=== PATIENT | female | born 1935 | race Caucasian/White ===

== ENCOUNTER 2016-10-19 08:00 | Outpatient (RCR) | payer MEDICARE, BC ==
[~2016-10-19 08:00] MED LIST: ALTACE 1.25MG1.25 MG; ALTACE 2.5MG T2.5 MG PO; AZASITE 2.5 ML2.5 ML OP; CALCIUM1 CAP; COMBIGAN 0.2%-0.5 ML; EYE DROPS; LIQUID MULTIVITAMIN; OMEGA-3 FISH1200 MG PO; SIMETHICONE 1 ML1 ML; ZOFRAN ODT4 MG PO; [UNRECOGNIZED DRUG - OTHER]; [UNRECOGNIZED DRUG - REMARK]
== END 2016-10-26 08:28 | disposition home or self-care (01) ==
LOC: WSPT 08:00
DX: R60.0 Localized edema (principal); M19.90 Unspecified osteoarthritis, unspecified site
CPT/HCPCS: G8978-GP; G8979-GP; G8980-GP

== ENCOUNTER → 2016-11-19 | Outpatient (REF) | LOC: ZLAB.WCH 16:00 | DX: Z01.89 Encounter for other specified special examinations (principal) ==

== ENCOUNTER → 2017-04-07 | Outpatient (REF) ==
[2017-04-07 09:33] LABS: THYROID STIMULATING HORMONE 1.96 uIU/mL (0.465-4.680)
== END ==
LOC: ZLAB.WCH 08:41
PROVIDERS: Family Medicine
DX: Z01.89 Encounter for other specified special examinations (principal)

== ENCOUNTER → 2017-04-11 | Outpatient (CLI) | payer MEDICARE, BC | LOC: MC.RAD 14:40 | DX: Z12.31 Encounter for screening mammogram for malignant neoplasm of breast (principal) ==

== ENCOUNTER → 2017-04-19 | Outpatient (CLI) | payer MEDICARE, BC | LOC: MC.RAD 12:58 | DX: R92.2 Inconclusive mammogram (principal) ==

== ENCOUNTER 2017-11-08 12:29 | Day surgery (SDC) | payer MEDICARE, BC ==
[~2017-11-08] VITALS: Ht 157.5 cm; Wt 72.4 kg
[2017-11-08] MEDS ORDERED: TIMOPTIC 0.25%-5 OP (13:41)
[2017-11-08] MEDS ORDERED: GENTEAL 10 ML10 M1 OP (13:42)
[2017-11-08] MEDS ORDERED: IBGARD PO (13:44)
[2017-11-08] MEDS ORDERED: EPA FISH OIL1 SGL PO (13:45)
[2017-11-08] MEDS ORDERED: CALCIUM CARBON650 M2 PO (13:47)
[2017-11-08] MEDS ORDERED: [UNRECOGNIZED DRUG - OTHER] PO (13:48)
[2017-11-08] MEDS ORDERED: PSYLLIUM PO (13:48)
[2017-11-08] MEDS ORDERED: THE MEDICINE S200 M2 PO (13:49)
[2017-11-08] MEDS ORDERED: JUICE PLUS PO (13:50)
[2017-11-08] MEDS ORDERED: PROBIOTIC FORMU1 CAP PO (13:51)
[2017-11-08] MEDS ORDERED: PRILOSEC 20MG20 MG PO (13:51)
[2017-11-08 13:52] VITALS: BP 189/80; PULSE 72; TEMP 98.1
[2017-11-08 14:50] VITALS: BP 140/66; PULSE 87
[2017-11-08 15:05] VITALS: BP 139/64; PULSE 77
[2017-11-08 15:20] VITALS: BP 142/73; PULSE 73
[2017-11-08 15:35] VITALS: BP 146/72; PULSE 72
== END 2017-11-08 15:48 | disposition home or self-care (01) ==
LOC: SDCO 12:29
DX: K22.8 Other specified diseases of esophagus (principal); K44.0 Diaphragmatic hernia with obstruction, without gangrene; R13.10 Dysphagia, unspecified; I10 Essential (primary) hypertension; E78.5 Hyperlipidemia, unspecified; Z85.828 Personal history of other malignant neoplasm of skin; M19.90 Unspecified osteoarthritis, unspecified site; Z90.710 Acquired absence of both cervix and uterus; Z88.5 Allergy status to narcotic agent; Z88.8 Allergy status to other drugs, medicaments and biological substances; Z88.1 Allergy status to other antibiotic agents; Z91.041 Radiographic dye allergy status
CPT/HCPCS: OP; J2250; J3010; J7030

== ENCOUNTER 2018-03-26 20:18 | Emergency (ER) | payer MEDICARE, BC ==
[~2018-03-26] VITALS: Ht 157.5 cm; Wt 71.8 kg
[~2018-03-26 20:18] MED LIST changes: +CALCIUM CARBON650 M2 PO; +EPA FISH OIL1 SGL PO; +GENTEAL 10 ML10 M1 OP; +IBGARD PO; +JUICE PLUS PO; +PRILOSEC 20MG20 MG PO; +PROBIOTIC FORMU1 CAP PO; +PSYLLIUM PO; +THE MEDICINE S200 M2 PO; +TIMOPTIC 0.25%-5 OP; +[UNRECOGNIZED DRUG - OTHER] PO
[2018-03-26 20:27] VITALS: TEMP 98.8
[2018-03-26 20:38] LABS: COLLECTION METHOD CLEAN CATCH
[2018-03-26 20:44] LABS: PH 7 (5-8); SQUAMOUS EPITHELIAL 0-2 /hpf; URINE APPEARANCE Hazy; URINE BACTERIA Rare /hpf; URINE BILIRUBIN Negative (NEGATIVE); URINE BLOOD 3+ (NEGATIVE); URINE COLOR Amber; URINE GLUCOSE Negative (NEGATIVE); URINE KETONE Negative (NEGATIVE); URINE LEUKOCYTE ESTERASE 3+ (NEGATIVE); URINE NITRATE Positive (NEGATIVE); URINE PROTEIN(semi-quant) Negative (NEGATIVE); URINE UROBILINOGEN Negative (NEGATIVE)
[2018-03-26] MEDS ORDERED: OMNICEF 300MG300 MG PO (21:29)
[2018-03-26] MEDS ORDERED: PYRIDIUM 100MG100 MG PO (21:29)
[2018-03-26 21:36] VITALS: BP 174/74; PULSE 75
== END 2018-03-26 21:43 | disposition home or self-care (01) ==
LOC: COL.ER 20:18
PROVIDERS: Emergency Medicine
DX: N39.0 Urinary tract infection, site not specified (principal)

== ENCOUNTER 2018-05-11 10:15 | Outpatient (RCR) | payer MEDICARE, BC ==
[~2018-05-11 10:15] MED LIST changes: +OMNICEF 300MG300 MG PO; +PYRIDIUM 100MG100 MG PO
== END 2018-05-16 08:14 | disposition home or self-care (01) ==
LOC: WSPT 10:15
DX: M54.6 Pain in thoracic spine (principal); R29.898 Other symptoms and signs involving the musculoskeletal system; M41.84 Other forms of scoliosis, thoracic region
CPT/HCPCS: G8978-GP; G8979-GP; G8980-GP

== ENCOUNTER → 2018-07-25 | Outpatient (CLI) | payer MEDICARE, BC | LOC: MC.RAD 10:00 | DX: Z12.31 Encounter for screening mammogram for malignant neoplasm of breast (principal) ==

== ENCOUNTER 2019-02-12 08:59 | Emergency (ER) | payer MEDICARE, BC ==
[~2019-02-12] VITALS: Ht 157.5 cm; Wt 72.7 kg
[~2019-02-12 08:59] MED LIST changes: -PSYLLIUM PO; +[UNRECOGNIZED DRUG - OTHER] PO; -[UNRECOGNIZED DRUG - OTHER] PO
[2019-02-12 09:05] VITALS: TEMP 96.6
[2019-02-12 09:45] LABS: BASO % 0.6 % (0.0-2.0); EOS # 0.1 (0.0-0.7); EOS % 1.5 % (0-4.0); GRAN # 3.8 (1.4-6.5); HEMATOCRIT 42.6 % (37.0-47.0); HEMOGLOBIN 14.3 g/dl (12.5-16.0); LYMPH # 1.7 (1.2-3.4); LYMPH % 26.3 % (20.0-51.0); MEAN CELL VOLUME 89 fl (80.0-100.0); MEAN CORPUSCULAR HEMOGLOBIN 30 pg (27.0-31.0); MEAN CORPUSCULAR HGB CONC 34 g/dl (33.0-37.0); MEAN PLATELET VOLUME 8.4 fl (7.4-10.4); MONO # 0.8 (0.1-0.6); MONO % 12.4 % (1.7-9.3); PLATELET COUNT 268 K/mm3 (130-400); RED BLOOD COUNT 4.77 M/mm3 (4.10-5.30); REDCELL DISTRIBUTION WIDTH-CV 13.1 % (11.5-14.5)
[2019-02-12 09:58] LABS: ALANINE AMINOTRANSFERASE 20 U/L (9-52); ALBUMIN 4.2 gm/dL (3.5-5.0); ALKALINE PHOSPHATASE 51 U/L (50-136); ANION GAP 8 mmol/L (7-16); AST,SGOT 33 U/L (15-37); BILIRUBIN,TOTAL 0.5 mg/dL (0.0-1.0); BLOOD UREA NITROGEN 18 mg/dL (7-17); CALCIUM 9.5 mg/dL (8.4-10.2); CARBON DIOXIDE 29 mmol/L (22-30); CHLORIDE 101 mmol/L (98-107); CREATININE, serum 0.65 (0.52-1.25); GLUCOSE 101 mg/dL (74-106); POTASSIUM 4.2 mmol/L (3.4-5.0); SODIUM 138 mmol/L (137-145); TOTAL PROTEIN 7.2 gm/dL (6.4-8.2)
[2019-02-12 10:18] LABS: TROPONIN-I < 0.012 ng/mL (0.000-0.035)
[2019-02-12 12:16] VITALS: BP 149/67; PULSE 68
== END 2019-02-12 12:19 | disposition home or self-care (01) ==
LOC: COL.ER 08:59
PROVIDERS: Emergency Medicine
DX: I10 Essential (primary) hypertension (principal); R42 Dizziness and giddiness; E78.5 Hyperlipidemia, unspecified; M79.7 Fibromyalgia; Z98.890 Other specified postprocedural states
CPT/HCPCS: J2060; J2405; J7030

== ENCOUNTER 2019-05-03 15:00 | Outpatient (RCR) | payer MEDICARE, BC | END 2019-05-10 13:16 | disposition home or self-care (01) | LOC: WSPT 15:00 | DX: M79.605 Pain in left leg (principal); M54.2 Cervicalgia ==

== ENCOUNTER → 2019-05-24 | Outpatient (CLI) | payer MEDICARE, BC | LOC: COL.CARD 10:00 | DX: R42 Dizziness and giddiness (principal) ==

== ENCOUNTER 2019-06-13 08:03 | Outpatient (CLI) | payer MEDICARE, BC ==
[~2019-06-13] VITALS: Ht 157.6 cm; Wt 73.9 kg
[2019-06-13 08:44] LABS: HEMATOCRIT 42.8 % (37.0-47.0); HEMOGLOBIN 14.5 g/dl (12.5-16.0); MEAN CELL VOLUME 90 fl (80.0-100.0); MEAN CORPUSCULAR HEMOGLOBIN 31 pg (27.0-31.0); MEAN CORPUSCULAR HGB CONC 34 g/dl (33.0-37.0); MEAN PLATELET VOLUME 8.3 fl (7.4-10.4); PLATELET COUNT 263 K/mm3 (130-400); RED BLOOD COUNT 4.75 M/mm3 (4.10-5.30); REDCELL DISTRIBUTION WIDTH-CV 12.8 % (11.5-14.5)
[2019-06-13 08:53] LABS: INR 0.9 (0.8-3.0); PROTHROMBIN TIME 10.2 SECONDS (9.7-12.8)
[2019-06-13 08:55] LABS: CALCIUM 9.6 mg/dL (8.4-10.2); CREATININE, serum 0.83 (0.52-1.25); POTASSIUM 4.3 mmol/L (3.4-5.0)
[2019-06-13 09:07] VITALS: BP 169/75; PULSE 75; TEMP 98.4
[2019-06-13] MEDS ORDERED: LOTEMAX 5 ML 5 M5 ML OD (09:13)
[2019-06-13] MEDS ORDERED: MULTIPLE VITAMI1 TA5 PO (09:14)
[2019-06-13] MEDS ORDERED: PLAVIX 75MG TAB75 MG PO (09:15)
[2019-06-13] MEDS ORDERED: ASPIRIN 32325 MG/TAB PO (09:15)
[2019-06-13] MEDS ORDERED: AVAPRO75 MG PO (09:15)
[2019-06-13] MEDS ORDERED: LIPITOR 40MG TA40 MG PO (09:15)
[2019-06-13 09:50] VITALS: BP 164/75; PULSE 74
[2019-06-13 10:05] VITALS: BP 156/71; PULSE 71
[2019-06-13 10:20] VITALS: BP 167/69; PULSE 72
[2019-06-13 10:35] VITALS: BP 165/75; PULSE 75
--- NOTE | 2019-06-13 10:58 | NUR ---
Discharge instructions given to pt.Pt verbalizes understanding.INT removed,catheter tip intat.Pt escorted out via wheelchair by this nurse.
== END 2019-06-13 11:25 | disposition home or self-care (01) ==
LOC: COL.RAD 08:03
PROVIDERS: Internal Medicine Cardiovascular Disease
DX: G45.9 Transient cerebral ischemic attack, unspecified (principal); I51.7 Cardiomegaly; I34.0 Nonrheumatic mitral (valve) insufficiency
CPT/HCPCS: J2704; J7120

== ENCOUNTER → 2019-08-01 | Outpatient (CLI) | payer MEDICARE, BC ==
[~2019-08-01] MED LIST changes: +ASPIRIN 32325 MG/TAB PO; +AVAPRO75 MG PO; +LIPITOR 40MG TA40 MG PO; +LOTEMAX 5 ML 5 M5 ML OD; +MULTIPLE VITAMI1 TA5 PO; +PLAVIX 75MG TAB75 MG PO
== END ==
LOC: MC.RAD 13:00
DX: Z12.31 Encounter for screening mammogram for malignant neoplasm of breast (principal)

== ENCOUNTER → 2020-08-18 | Outpatient (CLI) | payer MEDICARE, BC | LOC: MC.RAD 11:15 | DX: Z12.31 Encounter for screening mammogram for malignant neoplasm of breast (principal) ==

== ENCOUNTER 2020-10-31 14:45 | Outpatient (RCR) | payer MEDICARE, BC | END 2020-12-30 | disposition still patient (30) | LOC: WSPT | DX: M25.512 Pain in left shoulder (principal) ==

== ENCOUNTER → 2021-10-08 | Outpatient (CLI) | payer MEDICARE, BC | LOC: MC.RAD 13:14 | DX: Z12.31 Encounter for screening mammogram for malignant neoplasm of breast (principal) ==

== ENCOUNTER → 2023-02-04 | Outpatient (CLI) | payer MEDICARE, BC ==
[~2023-02-04] MED LIST changes: +ASPIRIN 81M81 MG/TA2 PO; +CALCIUM 600MG+D1 TAB PO; -CALCIUM CARBON650 M2 PO; +CATAPRES 0.1MG0.1 MG PO; +GARLIC100 MG; +LOPRESSOR 225 MG/TAB PO; +LOTEMAX0.5% OP; +NORVASC 5MG5 MG/TAB PO; +PEPCID 20MG TAB20 MG PO; +PEPPERMINT OIL PO; +TIMOLOL MALEATE5 M3 OP; +XANAX .25M0.25 MG/TA PO; +ZETIA 10MG TAB10 MG PO
== END ==
LOC: COL.RAD 02-02 14:00
DX: K21.9 Gastro-esophageal reflux disease without esophagitis (principal); R13.19 Other dysphagia

== ENCOUNTER → 2023-05-04 | Outpatient (CLI) | payer MEDICARE, BC ==
[~2023-05-04] MED LIST changes: -NORVASC 5MG5 MG/TAB PO; -PEPPERMINT OIL PO; -XANAX .25M0.25 MG/TA PO
== END ==
LOC: COL.RAD 13:57
DX: S80.12XA Contusion of left lower leg, initial encounter (principal); S80.11XA Contusion of right lower leg, initial encounter

== ENCOUNTER 2023-10-24 17:14 | Inpatient (IN) | payer MEDICARE, BC ==
[~2023-10-24] VITALS: Ht 157.5 cm; Wt 73.1 kg
[2023-10-24] MEDS ORDERED: Mag/Al Hydrox/Simeth Susp 30 ML CUP PO ONE (17:45)
[2023-10-24 17:50] LABS: BASO # 0.1 K/mm3 (0.0-0.2); BASO % 1.3 % (0.0-2.0); EOS # 0.3 K/mm3 (0.0-0.7); EOS % 5.2 % (0.0-4.0); GRAN # 2.8 K/mm3 (1.4-6.5); GRAN % 46.4 % (42.2-75.2); HEMATOCRIT 41.8 % (37.0-47.0); HEMOGLOBIN 14.2 g/dl (12.5-16.0); LYMPH # 2.1 K/mm3 (1.2-3.4); LYMPH % 35.5 % (20.0-51.0); MEAN CELL VOLUME 90 fl (80.0-100.0); MEAN CORPUSCULAR HEMOGLOBIN 30 pg (27-31); MEAN CORPUSCULAR HGB CONC 34 g/dl (33.0-37.0); MEAN PLATELET VOLUME 8.4 fl (7.4-10.4); MONO # 0.7 K/mm3 (0.1-0.6); MONO % 11.4 % (1.7-9.3); PLATELET COUNT 279 K/mm3 (130-400); RED BLOOD COUNT 4.67 M/mm3 (4.10-5.30); REDCELL DISTRIBUTION WIDTH-CV 13.2 % (11.5-14.5)
[2023-10-24 17:59] LABS: PROTHROMBIN TIME 10.5 SECONDS (9.7-12.8)
[2023-10-24] MEDS ORDERED: Ketorolac 15 MG/ML VIAL IV ONE (18:00)
[2023-10-24 18:04] LABS: PARTIAL THROMBOPLASTIN TIME 31.8 SECONDS (26.0-37.0)
[2023-10-24 18:08] LABS: ALANINE AMINOTRANSFERASE 20 U/L (0-55); ALBUMIN 3.9 gm/dL (3.4-4.8); ALKALINE PHOSPHATASE 56 U/L (40-150); ANION GAP 11 mmol/L (7-16); AST,SGOT 24 U/L (5-34); BLOOD UREA NITROGEN 16 mg/dL (10-20); CALCIUM 10.2 mg/dL (8.4-10.2); CARBON DIOXIDE 25 mmol/L (23-31); CHLORIDE 102 mmol/L (98-107); CREATININE, serum 0.75 mg/dL (0.57-1.11); GLUCOSE 99 mg/dL (70-99); POTASSIUM 3.9 mmol/L (3.5-4.5); SODIUM 138 mmol/L (136-145)
[2023-10-24 18:17] LABS: TROPONIN-I < 0.010 ng/mL (0.00-0.033)
[2023-10-24 18:40] LABS: BILIRUBIN,TOTAL 0.4 mg/dL (0.2-1.2)
[2023-10-24] MEDS ORDERED: Metoprolol Tartrate 25 MG TAB PO ONE (21:45)
[2023-10-24] MEDS ORDERED: Acetaminophen 325 MG TAB PO PRN (21:45)
[2023-10-24] MEDS ORDERED: hydrALAZINE 20 MG/ML 1 ML VIAL IV ONE (21:45)
[2023-10-24] MEDS ORDERED: CATAPRES 0.1MG0.1 MG PO (22:22)
[2023-10-24] MEDS ORDERED: cloNIDine 0.1 MG TAB PO ONE (22:30)
[2023-10-24] MEDS ORDERED: LORazepam 2 MG/ML 1 ML VIAL IV ONE (22:45)
[2023-10-24] MEDS ORDERED: Acetaminophen 500 MG TAB PO ONE (23:30)
[2023-10-24] MEDS ORDERED: Patient's Own Medication Item OP SCH (23:30)
[2023-10-25] VITALS (23 sets, daily range): BP systolic 90–193; BP diastolic 41–152; PULSE 62–96; TEMP 97.5–98.5
[2023-10-25] MEDS ORDERED: Acetaminophen 325 MG TAB PO PRN (01:30)
[2023-10-25] MEDS ORDERED: cloNIDine 0.1 MG TAB PO PRN (02:15)
--- NOTE | 2023-10-25 02:30 | NUR ---
PT ARRIVED TO ROOM 324 FROM ED & AMBULATED TO ROOM WITH STANDBY ASSIST. HERE FOR HTN. A&O X4. BP 150/71, OTHER VSS. ON TELE SR. INT TO RIGHT AC PATENT. DENYING PAIN. PT ORIENTED TO ROOM & HOSPITAL POLICIES. DISSCUSSED POC FOR THIS SHIFT. CALL LIGHT IN REACH & BED ALARM ON. PT DENIES FURTHER NEEDS AT THIS TIME
--- NOTE | 2023-10-25 05:58 | NUR ---
PT RESTING IN BED WITH UNLABORED RESP. CALL LIGHT IN REACH
[2023-10-25 06:31] LABS: BASO # 0.1 K/mm3 (0.0-0.2); BASO % 1.1 % (0.0-2.0); EOS # 0.3 K/mm3 (0.0-0.7); EOS % 3.9 % (0.0-4.0); GRAN # 4.3 K/mm3 (1.4-6.5); HEMATOCRIT 38.5 % (37.0-47.0); HEMOGLOBIN 13.4 g/dl (12.5-16.0); LYMPH % 26.6 % (20.0-51.0); MEAN CELL VOLUME 89 fl (80.0-100.0); MEAN CORPUSCULAR HEMOGLOBIN 31 pg (27-31); MEAN CORPUSCULAR HGB CONC 35 g/dl (33.0-37.0); MEAN PLATELET VOLUME 8.5 fl (7.4-10.4); MONO # 0.8 K/mm3 (0.1-0.6); MONO % 10.3 % (1.7-9.3); PLATELET COUNT 229 K/mm3 (130-400); RED BLOOD COUNT 4.34 M/mm3 (4.10-5.30)
[2023-10-25 06:43] LABS: CALCIUM 9.4 mg/dL (8.4-10.2); CREATININE, serum 0.76 mg/dL (0.57-1.11); POTASSIUM 4.1 mmol/L (3.5-4.5)
[2023-10-25 06:56] LABS: TROPONIN-I 0.184 ng/mL (0.00-0.033)
--- NOTE | 2023-10-25 07:12 | NUR ---
[facility] (0.184) CALLED TO DR. BUCKNER.
[2023-10-25] MEDS ORDERED: PEPPERMINT OIL PO (08:34)
--- NOTE | 2023-10-25 08:42 | NUR ---
Ship Boat Or Barge Mate met with patient to discuss discharge planning. Patient lives in [place] with her , Armand (ph#[phone]) who is at bedside. Patient sees Dr. Mason Berger in [place] for primary care and gets her medications from [facility]. Patient is able to drive herself to medical appointments and is independent with ADLS. Patient advised she does not use any DME. Patient believes she has DPOA-HC completed designating either Armand or their daughter, Myra (ph#[phone]). Discharge Plan: Home
[2023-10-25] MEDS ORDERED: Losartan 25 MG TAB PO SCH ×2 (09:00)
[2023-10-25] MEDS ORDERED: Calcium Carb/Vit D3 500 mg-200 Units TAB PO SCH ×2 (09:00)
[2023-10-25] MEDS ORDERED: Timolol 0.5% Ophth Soln 5 ML BOTTLE OP SCH ×2 (09:00)
[2023-10-25] MEDS ORDERED: Multivitamin TAB PO SCH ×2 (09:00)
[2023-10-25] MEDS ORDERED: [UNRECOGNIZED DRUG - REMARK] PO SCH (09:00)
--- NOTE | 2023-10-25 10:43 | NUR ---
PATIENT ALERT AND ORIENTED X4. VSS WITH THE EXCEPTION OF ELEVATED BP. PATIENT DENIES ANY PAIN AT THIS TIME. AM MEDS ADMINISTERED. IV INT TO RIGHT AC, FLUSHES WELL. PATIENT RESTING IN BED, AWARE OF NPO STATUS. DR BUCKNER ALLOWS A FEW SIPS OF WATER WITH MORNING MEDS. NO FURTHER NEEDS. CALL LIGHT IN REACH.
[2023-10-25] MEDS ORDERED: 1/2 NS 1,000 ML IV SCH ×2 (12:00→15:45)
[2023-10-25] MEDS ORDERED: ALPRAZolam 0.25 MG TAB PO PRN (12:00)
[2023-10-25] MEDS ORDERED: LORazepam 2 MG/ML 1 ML VIAL IV ONE (12:00)
[2023-10-25] MEDS ORDERED: diphenhydrAMINE 50 MG/ML 1 ML VIAL IV ONE (12:00)
[2023-10-25] MEDS ORDERED: methylPREDNISolone Sod Succ 125 MG/2 ML VIAL IV SCH (12:00)
--- NOTE | 2023-10-25 14:41 | NUR ---
SEE MERGE FOR PROCEDURE DOCUMENTATION
[2023-10-25] MEDS ORDERED: niCARdipine (Cath Lab) 100 MCG/ML 10 ML VIAL INCOR SCH (14:43)
[2023-10-25] MEDS ORDERED: Nitroglycerin 2% Topical Oint 1 GM UD TD SCH (14:46)
[2023-10-25] MEDS ORDERED: Heparin 1,000 UNITS/ML 10 ML Multi-Dose VIAL IV SCH (15:17)
[2023-10-25] MEDS ORDERED: fentaNYL 50 MCG/ML 2 ML VIAL IV SCH (15:18)
[2023-10-25] MEDS ORDERED: Midazolam 2 MG/2 ML VIAL IV SCH (15:20)
[2023-10-25] MEDS ORDERED: Iohexol 350 - 100 ML VIAL IV ONE (15:25)
--- NOTE | 2023-10-25 15:53 | NUR ---
PATIENT TRANSFERRED TO SURGICAL 324 VIA BED, ACCOMPANIED BY SPOUSE AND DAUGHTER. PATIENT DENIES CHEST PAIN, SOB, OR NAUSEA. EDUCATION PROVIDED ABOUT TR BAND AND KEEPING WRIST IMMOBILIZED UNTIL REMOVED. VITAL SIGNS TAKEN ON ARRIVAL. VSS. PATIENT POSITIONED IN BED FOR COMFORT, STAFF MET AT BEDSIDE. RADIAL SITE ASSESSED, CDI. BED IN LOWEST POSITION, CALL LIGHT WITHIN REACH, X3 BEDRAILS UP.
--- NOTE | 2023-10-25 16:17 | NUR ---
PATIENT BROUGHT BACK TO ROOM AT APPROXIMATELY 1540. RIGHT RADIAL BAND ON WITH 12CC OF AIR. PATIENT AMBULATED TO BATHROOM, VOIDED WITHOUT ISSUE. POST OP VITALS RUNNING, FLUIDS RUNNING INTO RIGHT AC AT 100ML/HOUR. PATIENT DENIES ANY PAIN. PATIENT TOLERATING PO. DINNER ORDERED. CALL LIGHT IN REACH.
[2023-10-25] MEDS ORDERED: hydrALAZINE 25 MG TAB PO SCH (17:00)
--- NOTE | 2023-10-25 18:49 | NUR ---
LAST 3 MLS OF AIR REMOVED FROM RADIAL BAND. BANDAID PLACED. PATIENT REMINDED TO NOT BEND WRIST. BAND AND SUPPLIES LEFT IN ROOM.
--- NOTE | 2023-10-25 20:00 | NUR ---
PT A&O X4 LAYING IN BED. VSS ON ROOM AIR. ON TELE SR. PT DENYING PAIN, N/V, OR SOA. RIGHT RADIAL SITE CDI & BANDAID IN PLACE. IVF INFUSING TO RIGHT AC VIA PUMP. PT DENYING FURTHER NEEDS. CALL LIGHTS IN REACH
[2023-10-25] MEDS ORDERED: amLODIPine 5 MG TAB PO SCH (21:00)
[2023-10-25] MEDS ORDERED: Patient's Own Medication Item OP SCH (21:00)
[2023-10-26] VITALS (7 sets, daily range): BP systolic 120–189; BP diastolic 54–81; PULSE 67–81; TEMP 98–979
[2023-10-26 08:15] LABS: BASO % 0.1 % (0.0-2.0); GRAN # 6.6 K/mm3 (1.4-6.5); GRAN % 75.1 % (42.2-75.2); HEMATOCRIT 37.9 % (37.0-47.0); HEMOGLOBIN 13.5 g/dl (12.5-16.0); LYMPH # 1.5 K/mm3 (1.2-3.4); MEAN CELL VOLUME 87 fl (80.0-100.0); MEAN CORPUSCULAR HEMOGLOBIN 31 pg (27-31); MEAN CORPUSCULAR HGB CONC 36 g/dl (33.0-37.0); MEAN PLATELET VOLUME 8.3 fl (7.4-10.4); MONO # 0.7 K/mm3 (0.1-0.6); MONO % 7.6 % (1.7-9.3); PLATELET COUNT 267 K/mm3 (130-400); RED BLOOD COUNT 4.35 M/mm3 (4.10-5.30); REDCELL DISTRIBUTION WIDTH-CV 12.7 % (11.5-14.5)
[2023-10-26] MEDS ORDERED: LORazepam 0.5 MG TAB PO ONE (08:30)
[2023-10-26 08:35] LABS: CALCIUM 9.7 mg/dL (8.4-10.2); CREATININE, serum 0.7 mg/dL (0.57-1.11); POTASSIUM 3.6 mmol/L (3.5-4.5)
[2023-10-26 09:03] LABS: CHOLESTEROL RISK RATIO 3.2
--- NOTE | 2023-10-26 11:07 | NUR ---
PATIENT ALERT AND ORIENTED X4. VSS. WITH THE EXCEPTION OF ELEVATED BP. MEDICATION ADMINISTERED FOR ANXIETY. PATIENT REPORTS MED HAS HELPED. PATIENT EATING BREAKFAST. NO C/O PAIN. PATIENT RESTING IN BED. CALL LIGHT IN REACH.
[2023-10-26] MEDS ORDERED: NORVASC 5MG5 MG/TAB PO (13:33)
[2023-10-26] MEDS ORDERED: CATAPRES 0.1MG0.1 MG PO (13:33)
[2023-10-26] MEDS ORDERED: XANAX .25M0.25 MG/TA PO (13:36)
[2023-10-26] MEDS ORDERED: LIPITOR 40MG TA40 MG PO (13:42)
--- NOTE | 2023-10-26 14:03 | NUR ---
Initial visit; Patient thanked Funeral Home Location Manager for looking in on her and keeping her in Funeral Home Location Manager's prayers. Her "Bonilla" was also present and Funeral Home Location Manager said she would also keep him in her prayers. Patient doing alright, she said, along with mentioning that her [employer] Family are all praying for her. Funeral Home Location Manager said that "Prayer is good."
--- NOTE | 2023-10-26 15:44 | NUR ---
DISCHARGE INSTRUCTIONS PROVIDED. PATIENT EDUCATION GIVEN. MEDICATIONS REVIEWED. FOLLOW UP APPOINTMENT DISCUSSED. IV DC'D. PATIENT DENIES ANY QUESTIONS OR CONCERNS.
--- NOTE | 2023-10-26 16:35 | NUR ---
PATIENT ESCORTED OUT VIA WHEELCHAIR.
[2023-10-30] MEDS ORDERED: Aspirin 325 MG TAB PO SCH ×2 (09:00)
== END 2023-10-26 16:35 | disposition home or self-care (01) | DRG 281 ==
LOC: COL.ER 17:14 → ICU 22:53 → SURG 22:54 → COL.ER 10-25 01:22 → SURG 10-25 01:22
PROVIDERS: Internal Medicine; Nurse Practitioner Family; ADMIT Internal Medicine
PROC: 4A023N7 Measurement of Cardiac Sampling and Pressure, Left Heart, Percutaneous Approach (ICD-10-PCS; principal; 2023-10-25)
PROC: B2111ZZ Fluoroscopy of Multiple Coronary Arteries using Low Osmolar Contrast (ICD-10-PCS; 2023-10-25)
DX: I16.1 Hypertensive emergency (principal); I21.4 Non-ST elevation (NSTEMI) myocardial infarction; I20.0 Unstable angina; I10 Essential (primary) hypertension; E78.5 Hyperlipidemia, unspecified; K21.9 Gastro-esophageal reflux disease without esophagitis; M19.90 Unspecified osteoarthritis, unspecified site; M79.7 Fibromyalgia; I73.9 Peripheral vascular disease, unspecified; H26.9 Unspecified cataract; H18.459 Nodular corneal degeneration, unspecified eye; F41.9 Anxiety disorder, unspecified; M06.9 Rheumatoid arthritis, unspecified; Z85.828 Personal history of other malignant neoplasm of skin; Z88.5 Allergy status to narcotic agent; Z88.2 Allergy status to sulfonamides; Z88.8 Allergy status to other drugs, medicaments and biological substances; Z88.6 Allergy status to analgesic agent; Z88.1 Allergy status to other antibiotic agents; Z88.3 Allergy status to other anti-infective agents; Z91.041 Radiographic dye allergy status; Z79.82 Long term (current) use of aspirin; Z79.899 Other long term (current) drug therapy; Z23 Encounter for immunization
CPT/HCPCS: C1769; J1200; J1644; J1650; J2060; J2250; J2404; J2930; J3010; Q9967

== ENCOUNTER → 2023-11-09 | Outpatient (CLI) | payer MEDICARE, BC ==
[~2023-11-09] MED LIST changes: +NORVASC 5MG5 MG/TAB PO; +PEPPERMINT OIL PO; +XANAX .25M0.25 MG/TA PO
== END ==
LOC: MC.RAD 15:06
DX: Z12.31 Encounter for screening mammogram for malignant neoplasm of breast (principal)

== ENCOUNTER 2024-02-14 08:19 | Emergency (ER) | payer MEDICARE, BC ==
[~2024-02-14] VITALS: Ht 157.5 cm; Wt 67.7 kg
[2024-02-14 08:21] VITALS: TEMP 97.8
[2024-02-14 09:33] LABS: BASO # 0.1 K/mm3 (0.0-0.2); BASO % 0.8 % (0.0-2.0); EOS # 0.2 K/mm3 (0.0-0.7); EOS % 3.2 % (0.0-4.0); GRAN # 4.2 K/mm3 (1.4-6.5); HEMATOCRIT 40.1 % (37.0-47.0); HEMOGLOBIN 13.6 g/dl (12.5-16.0); LYMPH % 16.2 % (20.0-51.0); MEAN CELL VOLUME 89 fl (80.0-100.0); MEAN CORPUSCULAR HEMOGLOBIN 30 pg (27-31); MEAN CORPUSCULAR HGB CONC 34 g/dl (33.0-37.0); MEAN PLATELET VOLUME 8.3 fl (7.4-10.4); MONO # 0.6 K/mm3 (0.1-0.6); MONO % 9.5 % (1.7-9.3); PLATELET COUNT 247 K/mm3 (130-400); RED BLOOD COUNT 4.52 M/mm3 (4.10-5.30); REDCELL DISTRIBUTION WIDTH-CV 12.6 % (11.5-14.5)
[2024-02-14 09:50] LABS: ALBUMIN 3.7 g/dL (3.4-4.8); BILIRUBIN,TOTAL 0.4 mg/dL (0.2-1.2); CALCIUM 9.8 mg/dL (8.4-10.2); CREATININE, serum 0.82 mg/dL (0.57-1.11); POTASSIUM 4.5 mEq/L (3.5-4.5); TOTAL PROTEIN 6.4 g/dl (6.2-8.1)
[2024-02-14 11:21] VITALS: BP 168/67; PULSE 74
== END 2024-02-14 11:26 | disposition home or self-care (01) ==
LOC: COL.ER 08:19
PROVIDERS: Personal Emergency Response Attendant
DX: G45.9 Transient cerebral ischemic attack, unspecified (principal); I44.0 Atrioventricular block, first degree